=== PATIENT | female | born 1950 | race Hispanic/Latino ===

== ENCOUNTER 2022-03-02 18:47 | Emergency (ER) | payer MEDICARE ==
[~2022-03-02] VITALS: Ht 165.1 cm; Wt 113.4 kg
[2022-03-02] MEDS ORDERED: HYDROCODONE/ACETAMINOPHEN 10/325 MG TAB PO ONE (19:30)
[2022-03-02 20:09] VITALS: BP 141/69
[2022-03-02] MEDS ORDERED: NAPR-1180 PO (20:30)
== END 2022-03-02 20:41 | disposition home or self-care (01) ==
LOC: EDH 18:47
DX: S80.02XA Contusion of left knee, initial encounter (principal); M17.12 Unilateral primary osteoarthritis, left knee; E66.9 Obesity, unspecified; Z68.41 Body mass index [BMI] 40.0-44.9, adult; I10 Essential (primary) hypertension; Z86.73 Personal history of transient ischemic attack (TIA), and cerebral infarction without residual deficits; Z98.890 Other specified postprocedural states; W19.XXXA Unspecified fall, initial encounter; Y93.89 Activity, other specified; Y92.89 Other specified places as the place of occurrence of the external cause; Y99.8 Other external cause status
CPT/HCPCS: 73562